=== PATIENT | male | born 1960 | race American Indian/Alaskan Native ===

== ENCOUNTER → 2018-10-25 | Outpatient (CLI) | payer MEDICAID, OTHER | LOC: DL.MRI 10:35 | PROVIDERS: ATTEND Nurse Practitioner Family | DX: M54.5 Low back pain (principal); G89.29 Other chronic pain; M47.817 Spondylosis without myelopathy or radiculopathy, lumbosacral region; M48.07 Spinal stenosis, lumbosacral region | CPT/HCPCS: 72146; 72148 ==

== ENCOUNTER 2020-03-07 13:40 | Emergency (ER) | payer MEDICAID, OTHER ==
[2020-03-07 14:00] VITALS: BP 130/81; PULSE 100
[2020-03-07] MEDS ORDERED: Ketorolac 30 MG/ML SDV IM ONE (16:15)
--- NOTE | 2020-03-07 16:22 | EDM.PDOC ---
"ED HPI GENERAL MEDICAL PROBLEM - General Chief Complaint: Back Pain or Injury Stated Complaint: fell and hurt back Time Seen by Provider: 03/07/20 16:05 Source of Information: Reports: Patient, RN, RN Notes Reviewed History Limitations: Reports: No Limitations - History of Present Illness INITIAL COMMENTS - FREE TEXT/NARRATIVE: Patient presents to the ED via personal vehicle with complaints of right lower back pain. The patient states he fell out of bed onto his nightstand on Tuesday03/03/20 onto his right side. He denies hitting his head or and LOC. He has been utilizing Tylenol and Motrin at home for pain, but has not experienced relief of his pain with these medications. He denies dysuria, hematuria, melena, black tarry stools, or numbness/tingling to his lower extremity. 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, REDUCED Other Neuro History: SUBDURAL HEMATOMA Psychiatric History: Reports: None Endocrine/Metabolic History: Reports: None Hematologic History: Reports: None Immunologic History: Reports: None Oncologic (Cancer) History: Reports: None Dermatologic History: Reports: None - Infectious Disease History Infectious Disease History: Reports: Chicken Pox, Measles, Mumps Other Infectious Disease History: thinks he has hepatitis, not sure which one - Past Surgical History Head Surgeries/Procedures: Reports: None HEENT Surgical History: Reports: Cataract Surgery Social & Family History - Tobacco Use Smoking Status *Q: Never Smoker Second Hand Smoke Exposure: No - Caffeine Use Caffeine Use: Reports: Coffee, Soda - Recreational Drug Use Recreational Drug Use: No ED ROS GENERAL - Review of Systems Review Of Systems: Comprehensive ROS is negative, except as noted in HPI. ED EXAM,LOWER BACK PAIN/INJURY - Physical Exam Exam: See Below Exam Limited By: No Limitations General Appearance: Alert, WD/WN Respiratory/Chest: No Respiratory Distress, Lungs Clear, Normal Breath Sounds, No Accessory Muscle Use, Chest Non-Tender Cardiovascular: Regular Rate, Rhythm, No Edema, No Gallop, No Murmur, No Rub GI/Abdominal: Normal Bowel Sounds, Soft, Non-Tender, No Distention, No Mass (Male) Exam: Deferred Rectal (Males) Exam: Deferred Back Exam: Decreased Range of Motion, Other (Right flank tenderness) Extremities: No: Pedal Edema, Leg Pain, Limited Range of Motion Neurological: Alert Skin Exam: Warm, Dry, Intact, Normal Color, No Rash, Other (Large bruise to right flank) Course - Vital Signs Last Recorded V/S: Last Vital Signs Temp 97.4 F 03/07/20 13:54 Pulse 100 03/07/20 13:54 Resp 16 03/07/20 13:54 BP 130/81 03/07/20 13:54 Pulse Ox 97 03/07/20 13:54 - Orders/Labs/Meds Labs: Laboratory Tests 03/07/20 Range/Units 16:45 Urine Color Yellow (YELLOW) Urine Appearance Slightly cloudy (CLEAR) Urine pH 5.5 (5.0-9.0) Ur Specific [place] >= 1.030 (1.005-1.030) Urine Protein Trace H (NEGATIVE) Urine Glucose (UA) Negative (NEGATIVE) Urine Ketones Trace H (NEGATIVE) Urine Occult Blood Negative (NEGATIVE) Urine Nitrite Negative (NEGATIVE) Urine Bilirubin Small H (NEGATIVE) Urine Urobilinogen 1.0 (0.2-1.0) mg/dL Ur Leukocyte Esterase Negative (NEGATIVE) Urine RBC 0-5 /HPF Urine WBC 0-5 (0-5/HPF) /HPF Ur Epithelial Cells Few (NOT SEEN) /HPF Amorphous Sediment Few (NOT SEEN) /HPF Urine Bacteria Rare (0-FEW/HPF) /HPF Urine Mucus Moderate H (NOT SEEN) /LPF Meds: Medications Discontinued Medications Generic Name Dose Route Start Last Admin Trade Name Freq PRN Reason Stop Dose Admin Ketorolac Tromethamine 30 mg 03/07/20 16:15 03/07/20 16:24 Toradol IM 03/07/20 16:16 30 mg ONETIME ONE Administration - Radiology Interpretation Free Text/Narrative:: [facility] Final Radiology Report Call: [phone] assistance Online chat: [email or web address] Name: CHATO OROZCO Age: 59Years M Date: 03/07/2020 SSN: -- : [id number] Study: CT ABDOMEN PELVIS WO CONT Requesting Physician: Cathie Zacarias Images: [id number] Addl Studies: Provided Clinical History: Flank pain 5 days s/post trauma Contrast: Without Contrast Medium: Contrast Amount: Contrast Method: Page 1 of 2 PROCEDURE INFORMATION: Exam: CT Abdomen And Pelvis Without Contrast Exam date and time: 03/07/2020 4:31 PM Age: 59 years old Clinical indication: Other: Left sided pain--query retroperitoneal bleed; Additional info: Flank pain 5 days s/post trauma TECHNIQUE: Imaging protocol: Computed tomography of the abdomen and pelvis without contrast. Radiation optimization: All CT scans at this facility use at least one of these dose optimization techniques: automated exposure control; mA and/or kV adjustment per patient size (includes targeted exams where dose is matched to clinical indication); or iterative reconstruction. COMPARISON: No relevant prior studies available. FINDINGS: Lungs: Minimal linear atelectasis at the lung bases. Liver: Normal. No mass. Gallbladder and bile ducts: Normal. No calcified stones. No ductal dilation. Pancreas: Normal. No ductal dilation. Spleen: Normal. No splenomegaly. Adrenals: Normal. No mass. Kidneys and ureters: Tiny exophytic cyst posterior left kidney. Stomach and bowel: Moderate amount of stool throughout the colon. The stomach is moderately distended with debris. Appendix: No evidence of appendicitis. Intraperitoneal space: Unremarkable. No free air. No significant fluid collection. Vasculature: Unremarkable. No abdominal aortic aneurysm. CHATO OROZCO | Final Radiology Report CONFIDENTIALITY STATEMENT This report is intended only for use by the referring physician, and only in accordance with law. If you received this in error, call [phone]. Page 2 of 2 Lymph nodes: Unremarkable. No enlarged lymph nodes. Urinary bladder: The density of the urine within the bladder measures greater than simple fluid. Possibly technical. Reproductive: Minimal prominence of prostate gland. Bones/joints: Unremarkable. No acute fracture. Soft tissues: Small inguinal hernias containing fat. Other findings: Lack of intravenous contrast material limits evaluation of the abdominal/pelvic organs. IMPRESSION: 1. No evidence for urinary tract calculi. No evidence for retroperitoneal bleed as clinically questioned. 2. The density of the urine within the bladder measures slightly greater than simple fluid of uncertain significance. Correlate clinically to exclude any underlying hematuria or any possibility of underlying urinary tract infection. Thank you for allowing us to participate in the care of your patient. Dictated and Authenticated by: Geoff Meredith MD 03/07/2020 4:50 PM Central Time ([place] & [place]) - Re-Assessments/Exams Free Text/Narrative Re-Assessment/Exam: 03/07/20 17:[address] abdomen/pelvis unremarkable. Departure - Departure Time of Disposition: 17:23 Disposition: Home, Self-Care 01 Condition: Good Clinical Impression: Low back pain Qualifiers: Chronicity: acute Back pain laterality: left Sciatica presence: without sciatica Qualified Code(s): M54.5 - Low back pain - Discharge Information *PRESCRIPTION DRUG MONITORING PROGRAM REVIEWED*: Not Applicable *COPY OF PRESCRIPTION DRUG MONITORING REPORT IN PATIENT DEMARIO: Not Applicable Instructions: Acute Back Pain, Adult Forms: ED Department Discharge Additional Instructions: Continue Tylenol and Motrin, as you have been doing. Rotate ice and heat to affected area. Sepsis Event Note (ED) - Evaluation Sepsis Screening Result: No Definite Risk - Focused Exam Vital Signs: Vital Signs Temp Pulse Resp BP Pulse Ox 03/07/20 13:54 97.4 F 100 16 130/81 97"
--- NOTE | 2020-03-07 16:51 | CT ---
PROCEDURE INFORMATION: Exam: CT Abdomen And Pelvis Without Contrast Exam date and time: 03/07/2020 4:31 PM Age: 59 years old Clinical indication: Other: Left sided pain--query retroperitoneal bleed; Additional info: Flank pain 5 days s/post trauma TECHNIQUE: Imaging protocol: Computed tomography of the abdomen and pelvis without contrast. Radiation optimization: All CT scans at this facility use at least one of these dose optimization techniques: automated exposure control; mA and/or kV adjustment per patient size (includes targeted exams where dose is matched to clinical indication); or iterative reconstruction. COMPARISON: No relevant prior studies available. FINDINGS: Lungs: Minimal linear atelectasis at the lung bases. Liver: Normal. No mass. Gallbladder and bile ducts: Normal. No calcified stones. No ductal dilation. Pancreas: Normal. No ductal dilation. Spleen: Normal. No splenomegaly. Adrenals: Normal. No mass. Kidneys and ureters: Tiny exophytic cyst posterior left kidney. Stomach and bowel: Moderate amount of stool throughout the colon. The stomach is moderately distended with debris. Appendix: No evidence of appendicitis. Intraperitoneal space: Unremarkable. No free air. No significant fluid collection. Vasculature: Unremarkable. No abdominal aortic aneurysm. Lymph nodes: Unremarkable. No enlarged lymph nodes. Urinary bladder: The density of the urine within the bladder measures greater than simple fluid. Possibly technical. Reproductive: Minimal prominence of prostate gland. Bones/joints: Unremarkable. No acute fracture. Soft tissues: Small inguinal hernias containing fat. Other findings: Lack of intravenous contrast material limits evaluation of the abdominal/pelvic organs. IMPRESSION: 1. No evidence for urinary tract calculi. No evidence for retroperitoneal bleed as clinically questioned. 2. The density of the urine within the bladder measures slightly greater than simple fluid of uncertain significance. Correlate clinically to exclude any underlying hematuria or any possibility of underlying urinary tract infection.
== END 2020-03-07 17:44 | disposition home or self-care (01) ==
LOC: DL.ED 13:40
DX: S30.1XXA Contusion of abdominal wall, initial encounter (principal); M54.5 Low back pain; K21.9 Gastro-esophageal reflux disease without esophagitis; Z79.899 Other long term (current) drug therapy; W06.XXXA Fall from bed, initial encounter
CPT/HCPCS: 74176; 81001; 96372; 99284; J1885; 99283